=== PATIENT | male | born 1990 | race Caucasian/White ===

== ENCOUNTER 2016-06-05 10:31 | Day surgery (SDC) | payer MEDICAID, OTHER ==
[~2016-06-05] VITALS: Ht 175.3 cm; Wt 128.0 kg
[~2016-06-05 10:31] MED LIST: TAMS-11 PO
[2016-06-05 10:53] VITALS: BP 148/92
[2016-06-05] MEDS ORDERED: LACTATED RINGERS 1,000 ML IV SCH (10:57)
[2016-06-05] MEDS ORDERED: FENTANYL PF 100 MCG/2ML ONE (12:38)
[2016-06-05] MEDS ORDERED: MIDAZOLAM 1 MG/ML, 2ML ONE ×2 (12:38→13:25)
[2016-06-05] MEDS ORDERED: ONDANSETRON 2MG/ML, 2ML ONE (13:12)
[2016-06-05] MEDS ORDERED: PROPOFOL 10 MG/ML, 20ML ONE (13:12)
[2016-06-05] MEDS ORDERED: OMNIPAQUE 350 MG/ML, 50 ML BOTTLE IV ONE (13:55)
[2016-06-05] MEDS ORDERED: OMNIPAQUE 350 MG/ML, 50 ML BOTTLE ONE (14:45)
[2016-06-05] MEDS ORDERED: ACETAMINOPHEN 325 MG TABLET PO PRN (15:00)
[2016-06-05] MEDS ORDERED: METOPROLOL 1 MG/ML, 5ML IV PRN (15:00)
[2016-06-05] MEDS ORDERED: HYDROmorphone 1 MG/ML, 1ML IV PRN (15:00)
[2016-06-05] MEDS ORDERED: FENTANYL PF 100 MCG/2ML IV PRN (15:00)
[2016-06-05] MEDS ORDERED: PROMETHAZINE 25 MG/ML, 1ML IV PRN (15:00)
[2016-06-05] MEDS ORDERED: ALBUTEROL SULFATE 2.5 MG/3 ML NPPB PRN (15:00)
[2016-06-05] MEDS ORDERED: OXYcodone 5 MG/5 ML ORAL.SOL UDC PO PRN (15:00)
== END 2016-06-05 15:55 | disposition home or self-care (01) ==
LOC: OUT 10:31
PROVIDERS: ATTEND Urology
DX: N35.9 Urethral stricture, unspecified (principal); J45.909 Unspecified asthma, uncomplicated; Z72.89 Other problems related to lifestyle; Z82.49 Family history of ischemic heart disease and other diseases of the circulatory system
CPT/HCPCS: 51610; 52276; 74450; J2250; J2405; J2704; J3010; J7120; Q9967; C1769